=== PATIENT | male | born 1960 | race Caucasian/White ===

== ENCOUNTER 2020-02-28 18:17 | Emergency (ER) | payer MEDICARE, MEDICAID, SELFPAY ==
[2020-02-28 18:18] VITALS: BP 141/109; PULSE 95; RESP 12; TEMP 36.9; O2SAT 96
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
[2020-02-28 20:33] VITALS: BP 178/116; PULSE 89; O2SAT 96
--- NOTE | 2020-02-28 20:36 | ED.DEP ---
ED Disposition - Plan for ED Patient: Disposition: Home or Assisted Living Referrals: [facility] Doctor,Out of [NON-STAFF] - 3-5 Days Additional Instructions: Follow-up with your doctor. We will have Adult Protective Services follow-up with you as an outpatient.
[2020-02-28 21:00] VITALS: RESP 20; O2SAT 97
== END 2020-02-28 21:40 | disposition home or self-care (01) ==
PROVIDERS: Emergency Provider Emergency Medicine; PCP Internal Medicine Infectious Disease
DX: I69.341 Monoplegia of lower limb following cerebral infarction affecting right dominant side (principal); I25.2 Old myocardial infarction; R62.7 Adult failure to thrive; Z98.1 Arthrodesis status
CPT/HCPCS: 99284